=== PATIENT | male | born 1995 ===

== ENCOUNTER 2023-09-12 10:48 | Emergency (ER) | payer SELFPAY ==
[~2023-09-12] VITALS: Ht 166 cm; Wt 68.0 kg
[2023-09-12 11:00] VITALS: BP 139/68
[2023-09-12] MEDS ORDERED: NS IV 1000 ML 1,000 ML IV STA (11:14)
[2023-09-12] MEDS ORDERED: ONDANSETRON INJECTION 4 MG/2 ML (SDV) IVP ONE (11:15)
[2023-09-12] MEDS ORDERED: fentaNYL INJECTION 100 MCG/2 ML VIAL IVP ONE (11:15)
[2023-09-12 11:18] LABS: BASOPHILS % (AUTO) 0 % (0-10); EOSINOPHILS # (AUTO) 0.4 10^3/uL (0.0-0.3); EOSINOPHILS % (AUTO) 5 % (0-10); HEMATOCRIT 47 % (40-54); HEMOGLOBIN 15.6 g/dL (13.3-17.7); LYMPHOCYTES # (AUTO) 1.4 10^3/uL (1.0-4.0); LYMPHOCYTES % (AUTO) 18 % (12-44); MEAN CORPUSCULAR HEMOGLOBIN 31 pg (25-34); MEAN CORPUSCULAR HGB CONC 33 g/dL (32-36); MEAN CORPUSCULAR VOLUME 93 fL (80-99); MEAN PLATELET VOLUME 9.1 fL (9.0-12.2); MONOCYTES # (AUTO) 0.6 10^3/uL (0.0-1.0); MONOCYTES % (AUTO) 7 % (0-12); NEUTROPHILS # (AUTO) 5.6 10^3/uL (1.8-7.8); NEUTROPHILS % (AUTO) 70 % (42-75); PLATELET COUNT 279 10^3/uL (130-400)
--- NOTE | 2023-09-12 11:20 | ED Abdominal Pain ---
General Chief Complaint: Abdominal/GI Problems Stated Complaint: ABD PAIN Source of Information: Patient, Nurse Private Duty Exam Limitations: Language Barrier History of Present Illness Date Seen by Provider: Sep 12, 2023 Time Seen by Provider: 10:52 Initial Comments 28 YO male presents to ED from [facility] for right lower quadrant abdominal pain, onset x 3 days. 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 Pt reports x 7 days ago he developed "kidney pain," that slightly improved. However, x 3 days ago he developed pain in his RLQ with intermittent fevers and nausea. He denies vomiting and diarrhea. States the RLQ pain has been constant since onset. Reports history of kidney stones. States he has some pain with urination and frequency, but denies hematuria. He took otc antiinflammatories with minimal relief. He has no hx of abdominal surgeries. He is a daily cigarette smoker. Denies cough, shortness of breath, chest pain, melena, or any other acute sx. Timing/Duration: 3-4 Days Severity/Quality: Moderate Location: RLQ, Flank Modifying Factors: Improves With Analgesics Associated Symptoms: No Chest Pain; Fever/Chills; No Fatigue, No Headache, No Heartburn; Nausea/Vomiting; No Rash, No Shortness of Air, No Swelling/Mass in Abdomen, No Syncope, No Weakness Allergies and Home Medications Allergies Coded Allergies: No Known Drug Allergies (Unverified , 09/12/23) Patient Home Medication List Home Medication List Reviewed: Yes Review of Systems Review of Systems Constitutional: No chills, No diaphoresis; fever EENTM: No Throat Pain, No Throat Swelling Respiratory: Denies Cough, Denies Shortness of Air Cardiovascular: Denies Chest Pain, Denies Edema, Denies Irregular Heart Rate, Denies Lightheadedness Gastrointestinal: Denies Abdomen Distended; Abdominal Pain; Denies Diarrhea; Nausea, Poor Appetite; Denies Vomiting Genitourinary: Burning; Denies Discharge; Frequency; Denies Hematuria, Denies Incontinence, Denies Urgency Musculoskeletal: No muscle weakness, No neck pain Skin: No pruritus, No rash Psychiatric/Neurological: Denies Headache, Denies Weakness Endocrine: No Symptoms Reported Hematologic/Lymphatic: No Symptoms Reported All Other Systems Reviewed Negative Unless Noted: Yes Past Chmhnxj-Pmmobd-Pfdwhm Hx Patient Social History Tobacco Use?: Yes Tobacco type used: Cigarettes Substance use?: No Alcohol Use?: Yes Alcohol Frequency: Once in a while Pt feels they are or have been: No Immunizations Up To Date Influenza Vaccine Up-to-Date: No; Not Current Past Medical History Surgery/Hospitalization HX: DENIES Surgeries: No Physical Exam Vital Signs Vital Signs - First Documented 09/12/23 11:00 Temp 37.0 Pulse 66 Resp 14 B/P (MAP) 139/68 (91) Pulse Ox 98 Capillary Refill : Height/Weight/BMI Height: '" Weight: lbs. oz. kg; BMI Method: General Appearance: WD/WN, no apparent distress (Non toxic appearing) HEENT: PERRL/EOMI, normal ENT inspection, TMs normal, pharynx normal Neck: non-tender, full range of motion, supple, normal inspection Respiratory: chest non-tender, lungs clear, normal breath sounds, no respiratory distress, no accessory muscle use Cardiovascular: normal peripheral pulses, regular rate, rhythm, no edema, no gallop, no JVD, no murmur Peripheral Pulses: 2+ Dorsalis Pedis (R), 2+ Left Dors-Pedis (L), 2+ Radial Pulses (R), 2+ Radial Pulses (L) Gastrointestinal: normal bowel sounds, soft, no organomegaly, no pulsatile mass; No guarding, No rebound; tenderness (Moderate right lower quadrant tenderness to palpation. Positive tenderness at McBurney's. No rebound, guarding, or peritoneal signs. Positive CVA tenderness on the right. ); No hernia, No mass, No hepatomegaly, No spleenomegaly Extremities: normal range of motion, non-tender, normal inspection, no pedal edema, no calf tenderness, normal capillary refill Back: no vertebral tenderness, CVA tenderness (R) Neurologic/Psychiatric: no motor/sensory deficits, alert, normal mood/affect, oriented x 3 Skin: normal color, warm/dry Lymphatic: no adenopathy Progress/Results/Core Measures Results/Orders Lab Results Laboratory Tests Test 09/12/23 11:09 09/12/23 12:39 Range/Units White Blood Count 8.0 4.3-11.0 10^3/uL Red Blood Count 5.12 4.30-5.52 10^6/uL Hemoglobin 15.6 13.3-17.7 g/dL Hematocrit 47 40-54 % Mean Corpuscular Volume 93 80-99 fL Mean Corpuscular Hemoglobin 31 25-34 pg Mean Corpuscular Hemoglobin Concent 33 32-36 g/dL Red Cell Distribution Width 12.8 10.0-14.5 % Platelet Count 279 130-400 10^3/uL Mean Platelet Volume 9.1 9.0-12.2 fL Immature Granulocyte % (Auto) 0 % Neutrophils (%) (Auto) 70 42-75 % Lymphocytes (%) (Auto) 18 12-44 % Monocytes (%) (Auto) 7 0-12 % Eosinophils (%) (Auto) 5 0-10 % Basophils (%) (Auto) 0 0-10 % Neutrophils # (Auto) 5.6 1.8-7.8 10^3/uL Lymphocytes # (Auto) 1.4 1.0-4.0 10^3/uL Monocytes # (Auto) 0.6 0.0-1.0 10^3/uL Eosinophils # (Auto) 0.4 H 0.0-0.3 10^3/uL Basophils # (Auto) 0.0 0.0-0.1 10^3/uL Immature Granulocyte # (Auto) 0.0 0.0-0.1 10^3/uL Sodium Level 141 135-145 MMOL/L Potassium Level 4.0 3.6-5.0 MMOL/L Chloride Level 105 98-107 MMOL/L Carbon Dioxide Level 25 21-32 MMOL/L Anion Gap 11 5-14 MMOL/L Blood Urea Nitrogen 20 H 7-18 MG/DL Creatinine 1.16 0.60-1.30 MG/DL Estimat Glomerular Filtration Rate 87 BUN/Creatinine Ratio 17 Glucose Level 89 70-105 MG/DL Calcium Level 8.9 8.5-10.1 MG/DL Corrected Calcium 8.9 8.5-10.1 MG/DL Total Bilirubin 1.0 0.1-1.0 MG/DL Aspartate Amino Transf (AST/SGOT) 20 5-34 U/L Alanine Aminotransferase (ALT/SGPT) 25 0-55 U/L Alkaline Phosphatase 63 40-136 U/L Total Protein 7.0 6.4-8.2 GM/DL Albumin 4.0 3.2-4.5 GM/DL Lipase 11 8-78 U/L Urine Color YELLOW Urine Clarity CLEAR Urine pH 5.5 5-9 Urine Specific Alexander 1.010 L 1.016-1.022 Urine Protein NEGATIVE NEGATIVE Urine Glucose (UA) NEGATIVE NEGATIVE Urine Ketones NEGATIVE NEGATIVE Urine Nitrite NEGATIVE NEGATIVE Urine Bilirubin NEGATIVE NEGATIVE Urine Urobilinogen 0.2 < = 1.0 MG/DL Urine Leukocyte Esterase NEGATIVE NEGATIVE Urine RBC (Auto) NEGATIVE NEGATIVE Urine RBC NONE /HPF Urine WBC RARE /HPF Urine Crystals NONE /LPF Urine Bacteria NEGATIVE /HPF Urine Casts NONE /LPF Urine Mucus NEGATIVE /LPF Urine Culture Indicated NO Medications Given in ED Current Medications Medications Dose Ordered Sig/Lucho Route Start Time Stop Time Status Last Admin Dose Admin Fentanyl Citrate 50 mcg ONCE ONCE IVP 09/12/23 11:15 09/12/23 11:16 DC 09/12/23 11:21 50 MCG Iohexol 100 ml ONCE ONCE IV 09/12/23 12:30 09/12/23 12:31 DC 09/12/23 12:21 78 ML Ondansetron HCl 4 mg ONCE ONCE IVP 09/12/23 11:15 09/12/23 11:16 DC 09/12/23 11:21 4 MG Sodium Chloride 100 ml ONCE ONCE IV 09/12/23 12:30 09/12/23 12:31 DC 09/12/23 12:21 80 ML Vital Signs/I&O 09/12/23 11:00 Temp 37.0 Pulse 66 Resp 14 B/P (MAP) 139/68 (91) Pulse Ox 98 Progress Progress Note : Time: 11:32 Progress Note 28 YO male presented with RLQ tenderness and nausea, onset x 3 days. Pt is afebrile with vital signs requiring no immediate intervention. Exam is remarkable for RLQ TTP, positive McBurney's point, without any rebound, guarding , or peritoneal signs. Positive right sided CVA tenderness. Heart and lung exam unremarkable. DDx includes appendicitis, UTI, pyelonephritis, cholecystitis, viral GI illness, pancreatitis, vs others. Symptoms and exam are consistent with appendicitis. However, due to his R CVA tenderness, hx of kidney stones, and urinary symptoms UTI and pyelonephritis are high on the differential as well. Unlikely to have cholecystitis with no relation of pain and eating, no Hicks's sign, and constant pain for x 3 days. Low suspicion of pancreatitis as he has no epigastric tenderness, no radiation of pain to back, and limited history of alcohol use. Discussed plan to obtain CBC, CMP, UA, lipase and CT abd/pelvis with IV contrast. Will provide 50 mcg fentanyl, 4mg zofran, and 1L NS IVF for symptom control. Pt is agreeable with plan. Labs - No leukocytosis or H/H abnormality. BUN mildly elevated at 20, normal Cr. LFTs within normal limits. Negative lipase. Urine showed trace bacteria Imaging - CT abd/pelvis showed no evidence of appendicitis. Radiologist noted striated heterogeneous enhancement that can be seen with pyelonephritis. No renal calculi noted. Otherwise no acute abnormality. Reeval - 1300 - Pt resting comfortably, states his pain is much better. Discussed CT findings of pyelonephritis with plan to provide first dose of ciprofloxacin in the ED. Will dismiss home with Rx ciprofloxacin and toradol. Discussed return precautions and answered all questions. Pt verbalizes understanding and agreement with plan. He is stable for d/c. Departure Departure-Patient Inst. Referrals: [facility] (PCP/Family) Primary Care Physician EROS NEWSOME Sep 12, 2023 11:20
[2023-09-12 11:30] LABS: CALCIUM 8.9 MG/DL (8.5-10.1)
[2023-09-12 11:34] LABS: CREATININE SERUM 1.16 MG/DL (0.60-1.30)
[2023-09-12] MEDS ORDERED: IOHEXOL 350 MG/ML 100 ML (OMNIPAQUE 350) VIAL IV ONE (12:30)
[2023-09-12] MEDS ORDERED: NS 100 ML (IVPB) BAG IV ONE (12:30)
--- NOTE | 2023-09-12 12:44 | Diagnostic Imaging Report ---
PROCEDURE: CT abdomen and pelvis with contrast. TECHNIQUE: Multiple contiguous axial images were obtained through the abdomen and pelvis after administration of intravenous contrast. Auto Exposure Controls were utilized during the CT exam to meet ALARA standards for radiation dose reduction. All CT scans use one or more of the following dose optimizing techniques: automated exposure control, MA and/or KvP adjustment based on patient size and exam type or iterative reconstruction. INDICATION: Right lower quadrant pain for three days. COMPARISON: No prior studies are available for comparison. FINDINGS: The lung bases are clear. Liver is unremarkable. Gallbladder is unremarkable. There is no biliary ductal dilatation. The pancreas and spleen are unremarkable. No adrenal mass is detected. Both kidneys demonstrate somewhat heterogeneous, striated enhancement pattern which can be seen with polynephritis. No significant perinephric inflammatory stranding is seen. There is no hydronephrosis. No calculi are detected. Aorta is nonaneurysmal. Bowel loops are nonobstructed. Appendix is well visualized in the right lower quadrant and appears unremarkable. There is no CT evidence of acute appendicitis. There is no free fluid or fluid collection. Bladder and prostate are unremarkable. IMPRESSION: 1. No CT evidence of acute appendicitis. 2. Striated, heterogeneous enhancement pattern to both kidneys, which can be seen with pyelonephritis. No other significant abnormality is detected. Dictated by: Dictated on workstation # [id number]
[2023-09-12 12:54] LABS: BACTERIA,URINE NEGATIVE /HPF; BILIRUBIN,URINE NEGATIVE (NEGATIVE); CLARITY,URINE CLEAR; COLOR,URINE YELLOW; GLUCOSE, URINE (UA) NEGATIVE (NEGATIVE); KETONES,URINE NEGATIVE (NEGATIVE); LEUKOCYTE ESTERASE ,URINE NEGATIVE (NEGATIVE); NITRITE,URINE NEGATIVE (NEGATIVE); PH,URINE 5.5 (5-9); PROTEIN,URINE NEGATIVE (NEGATIVE); WBC,URINE RARE /HPF
[2023-09-12] MEDS ORDERED: CIPROFLOXACIN 500 MG TABLET PO STA (12:56)
[2023-09-12] MEDS ORDERED: CIPR500T5 PO (13:07)
[2023-09-12] MEDS ORDERED: KETO10TA PO (13:07)
== END 2023-09-12 13:27 | disposition home or self-care (01) ==
LOC: ER 10:53
DX: R10.31 Right lower quadrant pain (principal); F17.210 Nicotine dependence, cigarettes, uncomplicated; Z87.442 Personal history of urinary calculi
CPT/HCPCS: 36415; 74177; 80053; 81000; 83690; 85025; 87591; 99282